=== PATIENT | female | born 1935 | race Caucasian/White ===

== ENCOUNTER 2022-01-21 07:00 | Inpatient (IN) | payer MEDICARE, OTHER ==
[~2022-01-21] VITALS: Ht 162.6 cm; Wt 67.7 kg
[2022-01-21 08:34] LABS: Basophils # (auto) 0 10 ^3/uL (0-0.2); Basophils % (auto) 0.5 % (0.0-2.0); Eosinophils # (auto) 0.1 10 ^3/uL (0-0.8); Eosinophils % (auto) 1.5 % (0.0-7.0); Hematocrit 44.6 % (36.0-46.0); Hemoglobin 14.8 g/dL (12.2-16.2); Lymphocytes # (auto) 2.3 10 ^3/uL (0.4-5.4); Lymphocytes % (auto) 31.5 % (10.0-50.0); Mean Corpuscular Hemoglobin 30.2 pg (28.0-32.0); Mean Corpuscular Hgb Conc. 33.1 g/dL (32.0-36.0); Mean Corpuscular Volume 91.3 fL (80.0-100.0); Monocytes # (auto) 0.7 10 ^3/uL (0-1.3); Monocytes % (auto) 9.2 % (0.0-12.0); Neutrophils # (auto) 4.1 10 ^3/uL (1.6-8.6); Neutrophils % (auto) 57.3 % (37.0-80.0); Nucleated Red Blood Cells % 0.4 %; Red Blood Cells 4.89 10^6/uL (4.0-5.20); Red Cell Distribution Width 14.8 % (11.8-14.3); White Blood Cell 7.2 10^3/uL (4.4-10.8)
[2022-01-21] MEDS ORDERED: SODIUM CHLORIDE 0.9% 1,000 ML IV ONE ×2 (08:45)
[2022-01-21] MEDS ORDERED: ONDANSETRON HCL 4 MG/2 ML VIAL IV ONE (08:45)
[2022-01-21 08:46] LABS: Albumin 4.2 g/dL (3.4-5.0); Calcium 10.3 mg/dL (8.5-10.1); Potassium 4.5 mmol/L (3.5-5.1)
[2022-01-21 08:57] LABS: BUN/Creatinine Ratio 26.7; Bilirubin, Total 0.9 mg/dL (0.2-1.0); Total Protein 6.3 g/dL (6.4-8.2)
[2022-01-21] MEDS ORDERED: CLOPIDOGREL BISULFATE 75 MG TAB PO ONE (09:00)
[2022-01-21] MEDS ORDERED: ASPirin 81 mg TAB PO ONE (09:00)
[2022-01-21 11:18] LABS: Urine Bacteria NONE SEEN /hpf (None Seen); Urine Blood Negative /uL (Negative); Urine Specific Gravity 1.012 (1.001-1.035); Urine WBC 2 /hpf (0 - 5)
[2022-01-21] MEDS ORDERED: MORPHINE SULFATE INJ 2 MG/ml SYRG IV PRN (12:00)
[2022-01-21] MEDS ORDERED: NITROGLYCERIN 0.4 MG SL TAB SL PRN (12:00)
[2022-01-21 13:22] LABS: Cholesterol 130 mg/dL (< 200); HDL Cholesterol 53 mg/dL (40-59); LDL Cholesterol 76 mg/dL (< 100); Triglycerides 77 mg/dL (< 150)
[2022-01-21 16:53] VITALS: BP 139/53
[2022-01-21 17:35] VITALS: BP 139/53
[2022-01-21] MEDS ORDERED: MOME1AER4 ×2 (17:48)
[2022-01-21] MEDS ORDERED: OMEP-260 PO (17:48)
[2022-01-21] MEDS ORDERED: LEVO50TA7 PO (17:48)
[2022-01-21] MEDS ORDERED: MONT-8 PO (17:48)
[2022-01-21] MEDS ORDERED: SIMV-8 PO (17:48)
[2022-01-21 20:00] VITALS: BP 128/66
[2022-01-21 22:44] VITALS: BP 128/66
[2022-01-22 05:14] VITALS: BP 126/65
[2022-01-22 06:32] LABS: Basophils # (auto) 0 10 ^3/uL (0-0.2); Basophils % (auto) 0.4 % (0.0-2.0); Eosinophils # (auto) 0.1 10 ^3/uL (0-0.8); Eosinophils % (auto) 2.2 % (0.0-7.0); Hematocrit 35.9 % (36.0-46.0); Hemoglobin 12.2 g/dL (12.2-16.2); Lymphocytes # (auto) 1.5 10 ^3/uL (0.4-5.4); Lymphocytes % (auto) 26.9 % (10.0-50.0); Mean Corpuscular Hemoglobin 31.2 pg (28.0-32.0); Mean Corpuscular Hgb Conc. 34.1 g/dL (32.0-36.0); Mean Corpuscular Volume 91.6 fL (80.0-100.0); Monocytes # (auto) 0.6 10 ^3/uL (0-1.3); Monocytes % (auto) 11.1 % (0.0-12.0); Neutrophils # (auto) 3.2 10 ^3/uL (1.6-8.6); Neutrophils % (auto) 59.4 % (37.0-80.0); Nucleated Red Blood Cells % 0.4 %; Red Blood Cells 3.91 10^6/uL (4.0-5.20); Red Cell Distribution Width 15.4 % (11.8-14.3); White Blood Cell 5.4 10^3/uL (4.4-10.8)
[2022-01-22 06:49] LABS: Albumin 3.3 g/dL (3.4-5.0); Calcium 9.5 mg/dL (8.5-10.1)
[2022-01-22 06:53] LABS: BUN/Creatinine Ratio 27.9; Bilirubin, Total 0.8 mg/dL (0.2-1.0); Total Protein 5.3 g/dL (6.4-8.2)
[2022-01-22 09:20] VITALS: BP 136/45
[2022-01-22] MEDS: ENOXAPARIN SOD 40 MG/0.4 ML SYRINGE SC SCH (10:10)
[2022-01-22 12:59] VITALS: BP 134/62
[2022-01-22] MEDS ORDERED: ACETAMINOPHEN 325 MG TAB PO PRN (13:15)
[2022-01-22 17:14] VITALS: BP 124/65
[2022-01-22 20:00] VITALS: BP 128/66
[2022-01-22 22:00] VITALS: BP 112/51
[2022-01-23 05:00] VITALS: BP 125/71
[2022-01-23] MEDS: LEVOTHYROXINE SODIUM 50 MCG TAB PO SCH (06:09)
[2022-01-23 09:07] VITALS: BP 140/52
[2022-01-23] MEDS: ENOXAPARIN SOD 40 MG/0.4 ML SYRINGE SC SCH (09:58)
[2022-01-23 12:31] VITALS: BP 145/68
[2022-01-23 16:27] VITALS: BP 106/61
[2022-01-23 23:16] LABS: Basophils # (auto) 0.1 10 ^3/uL (0-0.2); Basophils % (auto) 0.9 % (0.0-2.0); Eosinophils # (auto) 0.1 10 ^3/uL (0-0.8); Eosinophils % (auto) 1.6 % (0.0-7.0); Hematocrit 39.9 % (36.0-46.0); Hemoglobin 13.6 g/dL (12.2-16.2); Lymphocytes # (auto) 1.7 10 ^3/uL (0.4-5.4); Mean Corpuscular Hemoglobin 31.2 pg (28.0-32.0); Mean Corpuscular Hgb Conc. 34.1 g/dL (32.0-36.0); Mean Corpuscular Volume 91.5 fL (80.0-100.0); Monocytes # (auto) 0.7 10 ^3/uL (0-1.3); Monocytes % (auto) 11.9 % (0.0-12.0); Neutrophils # (auto) 3.4 10 ^3/uL (1.6-8.6); Neutrophils % (auto) 56.6 % (37.0-80.0); Nucleated Red Blood Cells % 0.1 %; Red Blood Cells 4.37 10^6/uL (4.0-5.20); Red Cell Distribution Width 14.7 % (11.8-14.3); White Blood Cell 5.9 10^3/uL (4.4-10.8)
[2022-01-24] MEDS: LEVOTHYROXINE SODIUM 50 MCG TAB PO SCH (05:41)
[2022-01-24 08:30] VITALS: BP 121/68
[2022-01-24 09:00] VITALS: BP 121/68
[2022-01-24] MEDS: ASPirin-EC 81 mg tab PO SCH (09:04)
[2022-01-24] MEDS: ENOXAPARIN SOD 40 MG/0.4 ML SYRINGE SC SCH (09:05)
[2022-01-24 09:34] LABS: Free T4 (Free Thyroxine) 1.07 ng/dL (0.89-1.76)
[2022-01-24 09:35] LABS: Free T3 2.53 pg/mL (2.3-4.2)
[2022-01-24 13:00] VITALS: BP 140/78
[2022-01-24 17:00] VITALS: BP 126/58
[2022-01-24] MEDS: ATORVASTATIN 20 MG TAB PO SCH (21:36)
[2022-01-25] VITALS (7 sets, daily range): BP systolic 93–151; BP diastolic 45–63
[2022-01-25 06:14] LABS: Partial Thromboplastin Time 27.1 sec (24.6-33.4)
[2022-01-25] MEDS: LEVOTHYROXINE SODIUM 50 MCG TAB PO SCH (06:19)
[2022-01-25] MEDS: ASPirin-EC 81 mg tab PO SCH (09:36)
[2022-01-25] MEDS: ENOXAPARIN SOD 40 MG/0.4 ML SYRINGE SC SCH (09:37)
[2022-01-25] MEDS ORDERED: LIDOCAINE VISCOUS 2% 15ML UD PO ONE (13:15)
[2022-01-25] MEDS ORDERED: MIDAZOLAM HCL 5 MG/ML-1ML VIAL IV ONE (13:15)
[2022-01-25] MEDS ORDERED: fentaNYL CITRATE 100 MCG/2 ML VL IV ONE (13:15)
[2022-01-25] MEDS ORDERED: MIDAZOLAM HCL 2MG/2ML 2ml VIAL (1mg/ml) IV ONE (14:00)
[2022-01-25] MEDS: APIXABAN 2.5 MG TAB PO SCH (18:49)
[2022-01-25] MEDS: ATORVASTATIN 20 MG TAB PO SCH (21:33)
[2022-01-26 05:00] VITALS: BP 146/62
[2022-01-26] MEDS: LEVOTHYROXINE SODIUM 50 MCG TAB PO SCH (06:15)
[2022-01-26 08:15] VITALS: BP 131/50
[2022-01-26] MEDS: APIXABAN 2.5 MG TAB PO SCH ×2 (08:34→17:16)
[2022-01-26 09:00] VITALS: BP 131/50
[2022-01-26] MEDS: ASPirin-EC 81 mg tab PO SCH (09:17)
[2022-01-26] MEDS: ENOXAPARIN SOD 40 MG/0.4 ML SYRINGE SC SCH (09:18)
[2022-01-26 13:00] VITALS: BP 121/60
[2022-01-26] MEDS ORDERED: APIX2.5T PO (15:31)
[2022-01-26 16:50] VITALS: BP 121/60
== END 2022-01-26 17:40 | disposition home or self-care (01) | DRG 65 ==
LOC: ER 07:00 → TELE 11:52 → TELE-WESTW 16:17
PROVIDERS: ADMIT Registered Nurse; ATTEND Internal Medicine
PROC: B24BZZ4 Ultrasonography of Heart with Aorta, Transesophageal (ICD-10-PCS; principal; 2022-01-25)
DX: I63.9 Cerebral infarction, unspecified (principal); G81.94 Hemiplegia, unspecified affecting left nondominant side; I12.9 Hypertensive chronic kidney disease with stage 1 through stage 4 chronic kidney disease, or unspecified chronic kidney disease; N18.2 Chronic kidney disease, stage 2 (mild); K52.9 Noninfective gastroenteritis and colitis, unspecified; R29.700 NIHSS score 0; J45.909 Unspecified asthma, uncomplicated; E03.9 Hypothyroidism, unspecified; Z20.822 Contact with and (suspected) exposure to COVID-19; E78.5 Hyperlipidemia, unspecified; Z85.42 Personal history of malignant neoplasm of other parts of uterus; Z90.710 Acquired absence of both cervix and uterus; Z88.0 Allergy status to penicillin
CPT/HCPCS: 36415; 70450; 70551; 71045; 80053; 80061; 81001; 83036; 83880; 84439; 84443; 84481; 84484; 85025; 85610; 85730; 86850; 86860; 86870; 86880; 86900; 86901; 86905; 86906; 86970; 86971; 86978; 93005; 93306; 93312; 93886; 96361; 96374; 97110; 97116; 97163; 97530; 99152; G0378; J2250; J2405

== ENCOUNTER 2022-06-25 08:23 | Inpatient (IN) | payer OTHER ==
[~2022-06-25] VITALS: Ht 160 cm; Wt 64.2 kg
[~2022-06-25 08:23] MED LIST: APIX2.5T PO; LEVO50TA7 PO; MOME1AER4; MONT-8 PO; OMEP-260 PO; SIMV-8 PO
[2022-06-25] MEDS ORDERED: SODIUM CHLORIDE 0.9% 500 ML IV ONE (10:00)
[2022-06-25] MEDS ORDERED: cefTRIAXone 1GM/50ML D5W 50 ML IV ONE (10:00)
[2022-06-25] MEDS ORDERED: levoFLOXacin 500MG 100 ML IV ONE (10:00)
[2022-06-25] MEDS ORDERED: IPRATROPIUM BROM 0.5 MG/2.5ML INH SOL NEB ONE (10:00)
[2022-06-25] MEDS ORDERED: ALBUTEROL SULF 2.5 MG/0.5ML(0.5%) NEB SOLN NEB ONE (10:00)
[2022-06-25] MEDS ORDERED: AZITHROMYCIN 500MG/ 250ML 250 ML IV ONE (10:00)
[2022-06-25 11:26] LABS: Basophils # (auto) 0.1 10 ^3/uL (0-0.2); Eosinophils # (auto) 0.1 10 ^3/uL (0-0.8); Eosinophils % (auto) 0.8 % (0.0-7.0); Hematocrit 37.9 % (36.0-46.0); Hemoglobin 13.4 g/dL (12.2-16.2); Lymphocytes # (auto) 1.1 10 ^3/uL (0.4-5.4); Lymphocytes % (auto) 12.3 % (10.0-50.0); Mean Corpuscular Hemoglobin 31.5 pg (28.0-32.0); Mean Corpuscular Hgb Conc. 35.2 g/dL (32.0-36.0); Mean Corpuscular Volume 89.4 fL (80.0-100.0); Monocytes # (auto) 1.1 10 ^3/uL (0-1.3); Monocytes % (auto) 12.2 % (0.0-12.0); Neutrophils # (auto) 6.7 10 ^3/uL (1.6-8.6); Neutrophils % (auto) 73.7 % (37.0-80.0); Nucleated Red Blood Cells % 0.1 %; Red Blood Cells 4.24 10^6/uL (4.0-5.20); Red Cell Distribution Width 13.4 % (11.8-14.3); White Blood Cell 9.1 10^3/uL (4.4-10.8)
[2022-06-25 11:41] LABS: Potassium 3.6 mmol/L (3.5-5.1)
[2022-06-25 11:42] LABS: BUN/Creatinine Ratio 14.8; Bilirubin, Total 0.9 mg/dL (0.2-1.0); Calcium 10.1 mg/dL (8.5-10.1); Total Protein 5.6 g/dL (6.4-8.2)
[2022-06-25 12:38] LABS: Urine Bacteria FEW /hpf (None Seen); Urine Blood TRACE /uL (Negative); Urine Specific Gravity 1.008 (1.001-1.035); Urine WBC 11 /hpf (0 - 5)
[2022-06-25] MEDS ORDERED: guaiFENesin-DM 100/10mg/5ml SYR PO PRN (13:15)
[2022-06-25] MEDS ORDERED: MORPHINE SULFATE INJ 2 MG/ml SYRG IV PRN (13:15)
[2022-06-25] MEDS ORDERED: NITROGLYCERIN 0.4 MG SL TAB SL PRN (13:15)
[2022-06-25 13:20] VITALS: BP 113/42
[2022-06-25 13:58] LABS: Cholesterol 130 mg/dL (< 200); HDL Cholesterol 32 mg/dL (40-59); LDL Cholesterol 81 mg/dL (< 100); Triglycerides 129 mg/dL (< 150)
[2022-06-25] MEDS ORDERED: FUROSEMIDE 40 MG/4 ML VIAL IV ONE (14:00)
[2022-06-25] MEDS ORDERED: ALBUTEROL MEDNEB 2.5 mg/3ml NEB ONE (17:54)
[2022-06-25] MEDS: ALBUTEROL SULF 2.5 MG/0.5ML(0.5%) NEB SOLN NEB SCH (18:07)
[2022-06-25] MEDS: APIXABAN 2.5 MG TAB PO SCH (18:10)
[2022-06-26 05:00] LABS: Basophils # (auto) 0 10 ^3/uL (0-0.2); Basophils % (auto) 0.5 % (0.0-2.0); Eosinophils # (auto) 0.1 10 ^3/uL (0-0.8); Eosinophils % (auto) 1.7 % (0.0-7.0); Hematocrit 30.6 % (36.0-46.0); Lymphocytes # (auto) 0.8 10 ^3/uL (0.4-5.4); Lymphocytes % (auto) 16.7 % (10.0-50.0); Mean Corpuscular Hemoglobin 31.8 pg (28.0-32.0); Mean Corpuscular Hgb Conc. 35.8 g/dL (32.0-36.0); Mean Corpuscular Volume 88.6 fL (80.0-100.0); Monocytes # (auto) 0.7 10 ^3/uL (0-1.3); Monocytes % (auto) 13.8 % (0.0-12.0); Neutrophils # (auto) 3.4 10 ^3/uL (1.6-8.6); Neutrophils % (auto) 67.3 % (37.0-80.0); Red Blood Cells 3.45 10^6/uL (4.0-5.20); Red Cell Distribution Width 13.3 % (11.8-14.3)
[2022-06-26 05:14] LABS: Anion Gap 7 (5-15); BUN/Creatinine Ratio 21.5; Blood Urea Nitrogen 14 mg/dL (7-18); Calcium 8.6 mg/dL (8.5-10.1); Carbon Dioxide 27 mmol/L (21-32); Chloride 109 mmol/L (98-107); GFR African American 111 mL/min; GFR Non-African American 92 mL/min; Glucose 84 mg/dL (74-106); Potassium 3.4 mmol/L (3.5-5.1); Sodium 143 mmol/L (136-145)
[2022-06-26] MEDS ORDERED: ALBUTEROL MEDNEB 2.5 mg/3ml NEB ONE ×3 (06:48→18:13)
[2022-06-26] MEDS ORDERED: LEVOTHYROXINE SODIUM 50 MCG TAB PO SCH (07:00)
[2022-06-26] MEDS: ALBUTEROL SULF 2.5 MG/0.5ML(0.5%) NEB SOLN NEB SCH ×3 (08:44→18:22)
[2022-06-26] MEDS: APIXABAN 2.5 MG TAB PO SCH ×2 (09:01→18:53)
[2022-06-26] MEDS: IPRATROPIUM BROM 0.5 MG/2.5ML INH SOL NEB PRN ×2 (09:42→18:22)
[2022-06-26] MEDS ORDERED: AZITHROMYCIN 500MG/ 250ML 250 ML IV SCH (10:00)
[2022-06-26] MEDS ORDERED: levoFLOXacin 250MG 50 ML IV SCH (10:00)
[2022-06-26] MEDS ORDERED: MONTELUKAST SODIUM 10 MG TAB PO SCH (10:00)
[2022-06-26] MEDS ORDERED: ENOXAPARIN SOD 40 MG/0.4 ML SYRINGE SC SCH (10:00)
[2022-06-26] MEDS ORDERED: PANTOPRAZOLE 40 MG TAB PO SCH (10:00)
[2022-06-26] MEDS ORDERED: LEVO750T8 PO (16:59)
[2022-06-26] MEDS ORDERED: levoFLOXacin 500 MG TAB PO ONE (17:00)
[2022-06-26] MEDS ORDERED: POTASSIUM CHL 20 Meq TABLET PO ONE ×2 (17:00→17:47)
[2022-06-26 18:00] VITALS: BP 126/70
[2022-06-26] MEDS ORDERED: ALBUAER3 IN (20:53)
[2022-06-27] MEDS ORDERED: levoFLOXacin 500 MG TAB PO SCH (10:00)
== END 2022-06-26 21:52 | disposition home or self-care (01) | DRG 194 ==
LOC: ER 08:23 → OVERFLOW 13:03
PROVIDERS: ADMIT Nurse Practitioner Family; ATTEND Nurse Practitioner Family
DX: J15.9 Unspecified bacterial pneumonia (principal); N39.0 Urinary tract infection, site not specified; E78.5 Hyperlipidemia, unspecified; E03.9 Hypothyroidism, unspecified; R09.02 Hypoxemia; R00.1 Bradycardia, unspecified; Z20.822 Contact with and (suspected) exposure to COVID-19; E11.9 Type 2 diabetes mellitus without complications; E87.6 Hypokalemia; J45.909 Unspecified asthma, uncomplicated; Z90.710 Acquired absence of both cervix and uterus; Z88.0 Allergy status to penicillin; Z86.73 Personal history of transient ischemic attack (TIA), and cerebral infarction without residual deficits
CPT/HCPCS: 36415; 71046; 80048; 80053; 80061; 81001; 83605; 83880; 84443; 84484; 85025; 87040; 87426; 87804; 93005; 94640; 96361; 96365; G0378; J0696; J1956

== ENCOUNTER 2025-02-04 15:48 | Emergency (ER) | payer OTHER ==
[~2025-02-04] VITALS: Ht 152.4 cm; Wt 51.8 kg
[~2025-02-04 15:48] MED LIST changes: +LEVO750T8 PO; -MOME1AER4; +MOME1AER5; -OMEP-260 PO; +OMEP1CAP70 PO; -SIMV-8 PO; +SIMV20TA20 PO
--- NOTE | 2025-02-04 16:09 | ED.PDOC ---
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 According to the granddaughter the patient was complaining of a bdominal discomfort for last couple of days but since morning she vomited 4 times with which contains phlegm and undigested food material. Patient also complaint of right lower leg swelling and dark urine for last 1 week. She denies fever, chills, abdominal pain, positive sick contact, dysuria, hematuria or any change in bowel habit. Chief Complaint: Nausea/Vomiting Time Seen by MD: 15:50 Primary Care Provider: Monico Allergies: Coded Allergies: Penicillins (Verified Allergy, Unknown, 08/29/16) Home Meds Active Scripts Levofloxacin (Levaquin 750 mg) 750 Mg Tab, 750 MG PO DAILY, #7 MG Prov:ALICIA BORJAS MD 06/26/22 Apixaban Base (ELIQUIS) 2.5 Mg Tab, 2.5 MG PO BIDWM, #60 TAB Prov:CONNIE SHINE MD 01/26/22 Reported Medications Mometasone Furoate-Formoterol (Dulera 50-5 Mcg/Act) 1 Aer Aer 01/21/22 Omeprazole (Omeprazole Dr) 20 Mg Cap, 1 CAP PO DAILYPRN 01/21/22 Montelukast Sodium (MONTELUKAST SODIUM) 10 Mg Tab, 1 TAB PO DAILYPRN 01/21/22 Simvastatin (Simvastatin) 20 Mg Tab, 1 TAB PO 01/21/22 Levothyroxine Sodium (Levothyroxine Sodium) 50 Mcg Tab, 1 TAB PO DAILYPRN 01/21/22 Information Source: Patient, Legal Guardian Mode of Arrival: Ambulatory Severity: Moderate Timing: Days Duration: Since onset Prehospital treatment: None Past Medical History PAST MEDICAL HISTORY: Asthma, GERD, High Lipids, Thyroid Surgical History: Appendectomy, Hysterectomy MONKEY BREEDER History: No Pertinent MONKEY BREEDER History Family History Family History: Reviewed,noncontributory to illness Social History Smoker: Non-Smoker Alcohol: Denies ETOH Use Drugs: Denies Drug Use Lives In: Home Constitutional: denies: chills, diaphoresis, fatigue, fever, malaise, sweats, weakness, others EENTM: denies: blurred vision, double vision, ear bleeding, ear discharge, ear drainage, ear pain, ear ringing, eye pain, eye redness, hearing loss, mouth pain, mouth swelling, nasal discharge, nose bleeding, nose congestion, nose pain, photophobia, tearing, throat pain, throat swelling, voice changes, others Respiratory: denies: cough, hemoptysis, orthopnea, SOB at rest, shortness of breath, SOB with excertion, stridor, wheezing, others Cardiovascular: denies: chest pain, dizzy spells, diaphoresis, Dyspnea on exertion, edema, irregular heart beat, left arm pain, lightheadedness, palpitations, PND, syncope, others Gastrointestinal: reports: abdominal pain, nausea, vomiting; denies: abdomen distended, blood streaked bowels, constipated, diarrhea, dysphagia, difficulty swallowing, hematemesis, melena, poor appetite, poor fluid intake, rectal bleeding, rectal pain, others Genitourinary: denies: abnormal vagina bleeding, burning, dyspareunia, dysuria, flank pain, frequency, hematuria, incontinence, pain, , vagina discharge, urgency, others Neurological: denies: dizziness, fainting, headache, left sided numbness, left sided weakness, numbness, paresthesia, pre-existing deficit, right sided numbness, right sided weakness, seizure, speech problems, tingling, tremors, weakness, others Musculoskeletal: reports: others (Swelling of the right lower leg); denies: back pain, gout, joint pain, joint swelling, muscle pain, muscle stiffness, neck pain Integumetry: denies: bruises, change in color, change in hair/nails, dryness, laceration, lesions, lumps, rash, wounds, others Allergic/Immunocompromised: denies: Difficulty Healing, Frequent Infections, Hives, Itching, others Hematologic/Lymphatic: denies: anemia, blood clots, easy bleeding, easy b ruising, swollen glands, others Endocrine: denies: excessive hunger, excessive sweating, excessive thirst, excessive urination, flushing, intolerance to cold, intolerance to heat, unexplained weight gain, unexplained weight loss, others Psychiatric: denies: anxiety, bipolar disorder, depression, hopeless, panic disorder, schizophrenia, sleepless, suicidal, others Physical Exam General Appearance: Normal HEENT: Normal ENT Inspection, Pharynx Normal, TMs Normal Neck: Full Range of Motion, Non-Tender, Normal, Normal Inspection Respiratory: Chest Non-Tender, Lungs Clear, No Accessory Muscle Use, No Respiratory Distress, Normal Breath Sounds Cardiovascular: No Edema, No JVD, No Murmur, No Gallop, Normal Peripheral Pulses, Regular Rate/Rhythm Breast Exam: Deferred Gastrointestinal: No Organomegaly, Non Tender, No Pulsatile Mass, Normal Bowel Sounds Genitalia: Deferred Pelvic: Deferred Rectal: Deferred Extremities: Calf tenderness, Normal capillary refill, Swelling, Other (Pedal edema 1+ in the right side) Neurologic: Other (Use walker) Cerebellar Function: NOT DONE Reflexes: NOT DONE Skin: NOT DONE Peripheral Pulses: 2+ carotid (R), 2+ carotid (L), 2+ femoral (R), 2+ femoral (L), 2+ dorsalis pedis (R), 2+ dorsalis pedis (L), 2+ Radial (R), 2+ Radial (L), 2+ Brachial (R), 2+ Brachial (L) Lymphatic: NOT DONE Was a procedure done? Was a procedure done?: No Differential Dx Considerations may include: Gastroenteritis, gastritis, PUD, cholelithiasis, IL, DVT, cellulitis, UTI X-Ray, Labs, Meds, VS Vital Signs Date Time Temp Pulse Resp B/P (MAP) Pulse Ox O2 Delivery O2 Flow Rate FiO2 02/04/25 15:50 97.3 77 18 109/66 97 97.3 Lab Test 02/04/25 18:24 02/04/25 17:07 Range/Units Urine Color Yellow Yellow Urine Clarity Turbid H Clear Urine pH 6.0 5.0-9.0 Urine Specific [place] 1.015 1.001-1.035 Urine Protein Negative Negative Urine Ketones Negative Negative Urine Blood Negative Negative /uL Urine Nitrite Negative Negative Urine Bilirubin Negative Negative Urine Urobilinogen Normal Negative mg/dL Urine Leukocyte Esterase Trace Negative /uL Urine RBC 42 0 - 4 /hpf Urine Microscopic WBC 20 H 0-5 /HPF Urine Squamous Epithelial Cells Few <5 /hpf Urine Calcium Oxalate Crystals Few None Seen Urine Bacteria None seen None Seen /hpf Urine Mucus Few None Seen Urine Glucose Normal Normal mg/dL White Blood Count 6.1 4.4-10.8 10^3/uL Red Blood Count 4.27 4.0-5.20 10^6/uL Hemoglobin 12.0 L 12.2-16.2 g/dL Hematocrit 36.4 36.0-46.0 % Mean Corpuscular Volume 85.2 80.0-100.0 fL Mean Corpuscular Hemoglobin 28.2 28.0-32.0 pg Mean Corpuscular Hemoglobin Concent 33.0 32.0-36.0 g/dL Red Cell Distribution Width 18.4 H 11.8-14.3 % Platelet Count 194 140-450 10^3/uL Mean Platelet Volume 7.3 6.9-10.8 fL Neutrophils (%) (Auto) 72.9 37.0-80.0 % Lymphocytes (%) (Auto) 15.6 10.0-50.0 % Monocytes (%) (Auto) 10.3 0.0-12.0 % Eosinophils (%) (Auto) 0.7 0.0-7.0 % Basophils (%) (Auto) 0.5 0.0-2.0 % Neutrophils # (Auto) 4.5 1.6-8.6 10 ^3/uL Lymphocytes # (Auto) 1.0 0.4-5.4 10 ^3/uL Monocytes # (Auto) 0.6 0-1.3 10 ^3/uL Eosinophils # (Auto) 0 0-0.8 10 ^3/uL Basophils # (Auto) 0 0-0.2 10 ^3/uL Nucleated Red Blood Cells 0.0 % Sodium Level 143 136-145 mmol/L Potassium Level 3.7 3.5-5.1 mmol/L Chloride Level 107 98-107 mmol/L Carbon Dioxide Level 28 20-31 mmol/L Anion Gap 8 5-15 Blood Urea Nitrogen 13 9-23 mg/dL Creatinine 0.89 0.550-1.02 mg/dL Glomerular Filtration Rate Calc 62 >90 mL/min BUN/Creatinine Ratio 14.6 10.0-20.0 Serum Glucose 83 74-106 mg/dL Calcium Level 9.2 8.7-10.4 mg/dL Total Bilirubin 0.8 0.2-1.0 mg/dL Aspartate Amino Transferase (AST) 21 13-40 U/L Alanine Aminotransferase (ALT) 11 7-40 U/L Alkaline Phosphatase 84 46-116 U/L Troponin I High Sensitivity 4 </=34 ng/L Total Protein 4.9 L 5.7-8.2 g/dL Albumin 3.3 3.2-4.8 g/dL Lipase 25 12-53 U/L X-Ray, Labs, Meds, VS Comment CLINICAL HISTORY: Right upper quadrant pain TECHNIQUE: Transabdominal sonogram was performed of the right upper quadrant. COMPARISON: None FINDINGS: The liver is normal in echogenicity. There is no focal parenchymal abnormality. No intrahepatic biliary ductal dilatation is present. The liver measures 16.6 cm. The gallbladder contains stones with no wall thickening. The sonographic gallardo sign was reported to be absent. The common bile duct is normal in caliber, measuring 2 mm. The partially visualized pancreas is grossly unremarkable. The right kidney is normal in echogenicity and measures 10.3 cm in length. There is no evidence for hydronephrosis or calculi. IMPRESSION: Cholelithiasis. CLINICAL HISTORY: To rule out DVT TECHNIQUE: Color and duplex doppler imagine of the bilateral lower extremity veins was performed. Vessel compression and augmentation if possible was also performed. COMPARISON: None FINDINGS: Right lower Extremity: Right common femoral vein: Normal compressibility and flow. Right superficial femoral vein: Normal compressibility and flow. Right popliteal vein: Normal compressibility and flow. Proximal calf veins demonstrate flow. Left lower Extremity: Left common femoral vein: Normal compressibility and flow. Left superficial femoral vein: Normal compressibility and flow. Left popliteal vein: Normal compressibility and flow. Proximal calf veins demonstrate flow. IMPRESSION: NO SONOGRAPHIC EVIDENCE FOR DEEP VENOUS THROMBOSIS IN THE BILATERAL LOWER EXTREMITY VEINS. Images Reviewed?: Images reviewed and evaluated by me Time of 1ST Reevaluation: 17:38 Reevaluation 1ST: Unchanged Patient Education/Counseling: Diagnosis, Treatment Family Education/Counseling: Diagnosis, Treatment Comments This is a 89 years old female presented to the ED with a chief complaint of abdominal discomfort, nausea and vomiting since morning. Initial physical exam demonstrated swelling of the right leg, and bilateral pedal edema 1+ Doppler scan of the lower extremity excluded DVT CBC and BMP are unremarkable Ultrasound of the right upper quadrant demonstrated cholelithiasis without acute cholecystitis U/A showed possible UTI The patient was sent to home with nitrofurantoin 100 b.i.d. for 5 days and advised to follow up with PCP. SEPSIS Sepsis Screen Date sepsis recognized/suspect: Feb 04, 2025 Time Sepsis recognized/suspect: 1551 Recent Procedure: No On Antibiotic Therapy: No Respiratory Rate >20: No Heart Rate >90: No Temp<36 C (96.8 F) or >38.3 C: No SBP <90 or MAP <65 mmHG: No New Acute Mental Status Change: No Is the patient on CPAP, BIPAP,: No Physician Orders Bilat Lower Dvt (02/04/25 16:06) Abdomen Limited (02/04/25 16:06) Vital Signs Date Time Temp Pulse Resp B/P (MAP) Pulse Ox O2 Delivery O2 Flow Rate FiO2 02/04/25 15:50 97.3 77 18 109/66 97 97.3 Laboratory Tests Test 02/04/25 17:07 White Blood Count 6.1 10^3/uL (4.4-10.8) Departure 1 Departure Time of Disposition: 19:06 Impression: Primary Impression: UTI (urinary tract infection) Additional Impression: Cholelithiasis Disposition: HOME / SELF CARE / HOMELESS Condition: Fair e-Prescriptions Nitrofurantoin (Nitrofurantoin) 100 Mg Cap 100 MG PO BID for 5 Days, #10 CAP Prov: LUCRECIA ANAND RESIDENT 02/04/25 Critical Care Note Critical Care Time?: No Stability Stability form required: LUCRECIA Hill RESIDENT Feb 04, 2025 16:09
--- NOTE | 2025-02-04 17:27 | DVH ---
CLINICAL HISTORY: To rule out DVT TECHNIQUE: Color and duplex doppler imagine of the bilateral lower extremity veins was performed. Ves ivana compression and augmentation if possible was also performed. COMPARISON: None FINDINGS: Right lower Extremity: Right common femoral vein: Normal compressibility and flow. Right superficial femoral vein: Normal compressibility and flow. Right popliteal vein: Normal compressibility and flow. Proximal calf veins demonstrate flow. Left lower Extremity: Left common femoral vein: Normal compressibility and flow. Left superficial femoral vein: Normal compressibility and flow. Left popliteal vein: Normal compressibility and flow. Proximal calf veins demonstrate flow. IMPRESSION: NO SONOGRAPHIC EVIDENCE FOR DEEP VENOUS THROMBOSIS IN THE BILATERAL LOWER EXTREMITY VEINS.
--- NOTE | 2025-02-04 17:30 | DVH ---
CLINICAL HISTORY: Right upper quadrant pain TECHNIQUE: Transabdominal sonogram was performed of the right upper quadrant. COMPARISON: None FINDINGS: The liver is normal in echogenicity. There is no focal parenchymal abnormality. No intrahepatic bili josue ductal dilatation is present. The liver measures 16.6 cm. The gallbladder contains stones with no wall thickening. The sonographic gallardo sign was reported to be absent. The common bile duct is normal in caliber, measuring 2 mm. The partially visualized pancreas is grossly unremarkable. The right kidney is normal in echogenicity and measures 10.3 cm in length. There is no evidence for h ydronephrosis or calculi. IMPRESSION: Cholelithiasis.
[2025-02-04 17:34] LABS: Hematocrit 36.4 % (36.0-46.0); Hemoglobin 12.0 g/dL (12.2-16.2); Mean Corpuscular Hemoglobin 28.2 pg (28.0-32.0); Mean Corpuscular Volume 85.2 fL (80.0-100.0); Nucleated Red Blood Cells % 0.0 %
[2025-02-04 17:41] LABS: Alanine Aminotransferase 11 U/L (7-40); Albumin 3.3 g/dL (3.2-4.8); Alkaline Phosphatase 84 U/L (46-116); Anion Gap 8 (5-15); BUN/Creatinine Ratio 14.6 (10.0-20.0); Blood Urea Nitrogen 13 mg/dL (9-23); Calcium 9.2 mg/dL (8.7-10.4); Carbon Dioxide 28 mmol/L (20-31); Glucose 83 mg/dL (74-106); Lipase 25 U/L (12-53); Potassium 3.7 mmol/L (3.5-5.1); Sodium 143 mmol/L (136-145)
[2025-02-04 17:42] LABS: Bilirubin, Total 0.8 mg/dL (0.2-1.0)
[2025-02-04 17:45] LABS: Chloride 107 mmol/L (98-107); Total Protein 4.9 g/dL (5.7-8.2)
[2025-02-04 18:50] LABS: Urine Protein, UAD Negative (Negative)
[2025-02-04] MEDS ORDERED: NITR-52 PO ×2 (19:08→19:48)
[2025-02-04 19:34] VITALS: BP 104/59; PULSE 59; RESP 20; TEMP 97.9; O2SAT 100
--- NOTE | 2025-02-06 14:07 | ECG ---
[facility] Test Date: 2025-02-04 Test Time: 16:27:43 Pat Name: JAYLIN RASHID Department: [facility] ED Patient ID: [facility]-[id number] Room: Gender: F Cloth Hand: YO : 1935 Requested By: LUCRECIA ANAND Order Number: [id number] Reading MD: Bobby Villagomez Measurements Intervals [place] Rate: 64 P: 50 MS: 168 QRS: 4 QRSD: 92 T: 62 QT: 427 QTc: 441 Interpretive Statements Sinus rhythm Low voltage, precordial leads Baseline wander in lead(s) I,II,aVR Electronically Signed On 02-11-2025 14:18:31 PDT by Bobby Villagomez Please click the below link to view image of tracing.
== END 2025-02-04 19:39 | disposition home or self-care (01) ==
LOC: ER 15:48
DX: N39.0 Urinary tract infection, site not specified (principal); K80.20 Calculus of gallbladder without cholecystitis without obstruction; R60.0 Localized edema; K21.9 Gastro-esophageal reflux disease without esophagitis; F41.9 Anxiety disorder, unspecified; E78.5 Hyperlipidemia, unspecified; Z79.899 Other long term (current) drug therapy; Z90.710 Acquired absence of both cervix and uterus; Z90.49 Acquired absence of other specified parts of digestive tract; Z88.0 Allergy status to penicillin; Z86.73 Personal history of transient ischemic attack (TIA), and cerebral infarction without residual deficits; Z79.51 Long term (current) use of inhaled steroids; Z79.01 Long term (current) use of anticoagulants
CPT/HCPCS: 36415; 76705; 80053; 81001; 83690; 84484; 85025; 93005; 93970

== ENCOUNTER 2025-05-25 14:02 | Inpatient (IN) | payer OTHER, MEDICAID ==
[~2025-05-25] VITALS: Ht 160 cm; Wt 51.0 kg
[~2025-05-25 14:02] MED LIST changes: +NITR-52 PO
[2025-05-25 15:58] VITALS: PULSE 74; RESP 18; O2SAT 97
--- NOTE | 2025-05-25 16:01 | ED.PDOC ---
Karen. trauma (HPI) HPI Comments This is a 89 year female BIB daughter presenting to the ED with chief complaint of fall injury. Patient's daughter reports that the patient had fallen suddenly at home without tripping on anything, falling onto her face into their carpet floor. Patient relays that she now has facial pain and bruising. Daughter states patient has history of a brain bleed in the past, no longer being on blood thinners. Patient denies any LOC, dizziness, N/V, headache, or chest pain. Chief Complaint: Fall Injury Time Seen by MD: 16:00 Primary Care Provider: Monico Reviewed notes: Nurses Notes, Medications, Allergies Allergies: Coded Allergies: Penicillins (Verified Allergy, Unknown, 08/29/16) Home Meds Active Scripts Nitrofurantoin (Nitrofurantoin) 100 Mg Cap, 1 CAP PO BID for 10 Days, #20 CAP Prov:SYEDA MCDONNELL MD 02/04/25 Nitrofurantoin (Nitrofurantoin) 100 Mg Cap, 100 MG PO BID for 5 Days, #10 CAP Prov:LUCRECIA ANAND 02/04/25 Levofloxacin (Levaquin 750 mg) 750 Mg Tab, 750 MG PO DAILY, #7 MG Prov:ALICIA BORJAS MD 06/26/22 Apixaban Base (ELIQUIS) 2.5 Mg Tab, 2.5 MG PO BIDWM, #60 TAB Prov:CONNIE SHINE MD 01/26/22 Reported Medications Mometasone Furoate-Formoterol (Dulera 50-5 Mcg/Act) 1 Aer Aer 01/21/22 Omeprazole (Omeprazole Dr) 20 Mg Cap, 1 CAP PO DAILYPRN 01/21/22 Montelukast Sodium (MONTELUKAST SODIUM) 10 Mg Tab, 1 TAB PO DAILYPRN 01/21/22 Simvastatin (Simvastatin) 20 Mg Tab, 1 TAB PO 01/21/22 Levothyroxine Sodium (Levothyroxine Sodium) 50 Mcg Tab, 1 TAB PO DAILYPRN 01/21/22 Information Source: Patient, Relative (Child) Mode of Arrival: Wheelchair Severity: Moderate Timing: Hours Duration: Since onset Prehospital treatment: None Location: Face Mechanism: Fall Past Medical History PAST MEDICAL HISTORY: Asthma, GERD, High Lipids, Thyroid Surgical History: Appendectomy, Hysterectomy 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 History Family History Family History: Reviewed,noncontributory to illness Social History Smoker: Non-Smoker Alcohol: Denies ETOH Use Drugs: Denies Drug Use Lives In: Home Constitutional: denies: chills, diaphoresis, fatigue, fever, malaise, sweats, weakness, others EENTM: denies: blurred vision, double vision, ear bleeding, ear discharge, ear drainage, ear pain, ear ringing, eye pain, eye redness, hearing loss, mouth pain, mouth swelling, nasal discharge, nose bleeding, nose congestion, nose pain, photophobia, tearing, throat pain, throat swelling, voice changes, others Respiratory: denies: cough, hemoptysis, orthopnea, SOB at rest, shortness of breath, SOB with excertion, stridor, wheezing, others Cardiovascular: denies: chest pain, dizzy spells, diaphoresis, Dyspnea on exertion, edema, irregular heart beat, left arm pain, lightheadedness, palpitations, PND, syncope, others Gastrointestinal: denies: abdomen distended, abdominal pain, blood streaked bowels, constipated, diarrhea, dysphagia, difficulty swallowing, hematemesis, melena, nausea, poor appetite, poor fluid intake, rectal bleeding, rectal pain, vomiting, others Genitourinary: denies: abnormal vagina bleeding, burning, dyspareunia, dysuria, flank pain, frequency, hematuria, incontinence, pain, , vagina discharge, urgency, others Neurological: denies: dizziness, fainting, headache, left sided numbness, left sided weakness, numbness, paresthesia, pre-existing deficit, right sided numbness, right sided weakness, seizure, speech problems, tingling, tremors, weakness, others Musculoskeletal: reports: others (Facial pain); denies: back pain, gout, joint pain, joint swelling, muscle pain, muscle stiffness, neck pain Integumetry: reports: bruises; denies: change in color, change in hair/nails, dryness, laceration, lesions, lumps, rash, wounds, others Allergic/Immunocompromised: denies: Difficulty Healing, Frequent Infections, Hives, Itching, others Hematologic/Lymphatic: denies: anemia, blood clots, easy bleeding, easy bruising, swollen glands, others Endocrine: denies: excessive hunger, excessive sweating, excessive thirst, excessive urination, flushing, intolerance to cold, intolerance to heat, unexpla ined weight gain, unexplained weight loss, others Psychiatric: denies: anxiety, bipolar disorder, depression, hopeless, panic disorder, schizophrenia, sleepless, suicidal, others All Other Systems: Reviewed and Negative Physical Exam General Appearance: No Apparent Distress, Normal HEENT: Normal ENT Inspection, Pharynx Normal, TMs Normal Neck: Full Range of Motion, Non-Tender, Normal, Normal Inspection Respiratory: Chest Non-Tender, Lungs Clear, No Accessory Muscle Use, No Respiratory Distress, Normal Breath Sounds Cardiovascular: No Edema, No JVD, No Murmur, No Gallop, Normal Peripheral Pulses, Regular Rate/Rhythm Breast Exam: Deferred Gastrointestinal: No Organomegaly, Non Tender, No Pulsatile Mass, Normal Bowel Sounds, Soft Genitalia: Deferred Pelvic: Deferred Rectal: Deferred Extremities: No calf tenderness, Normal capillary refill, Normal inspection, Normal range of motion, Non-tender, No pedal edema Musculoskeletal : Apperance: Normal Neurologic: Alert, cna II-XII nml as Tested, No Motor Deficits, Normal Affect, Normal Mood, No Sensory Deficits Cerebellar Function: Normal Reflexes: Normal Skin: Bruises (Ecchymosis to the face noted), Dry, Normal Color, Warm Lymphatic: No Adenopathy Was a procedure done? Was a procedure done?: No Differential Diagnosis Multiple Trauma: Fractures, Contusion X-Ray, Labs, Meds, VS Vital Signs Date Time Temp Pulse Resp B/P (MAP) Pulse Ox O2 Delivery O2 Flow Rate FiO2 05/25/25 15:58 74 18 97 Room Air* 0 21 05/25/25 15:38 98.8 74 18 130/87 (101) 97 98.8 05/25/25 14:08 97.9 81 16 99/56 94 97.9 Lab Test 05/25/25 16:40 Range/Units White Blood Count 8.8 4.4-10.8 10^3/uL Red Blood Count 3.87 L 4.0-5.20 10^6/uL Hemoglobin 11.5 L 12.2-16.2 g/dL Hematocrit 35.1 L 36.0-46.0 % Mean Corpuscular Volume 90.6 80.0-100.0 fL Mean Corpuscular Hemoglobin 29.6 28.0-32.0 pg Mean Corpuscular Hemoglobin Concent 32.7 32.0-36.0 g/dL Red Cell Distribution Width 15.3 H 11.8-14.3 % Platelet Count 207 140-450 10^3/uL Mean Platelet Volume 7.2 6.9-10.8 fL Neutrophils (%) (Auto) 75.7 37.0-80.0 % Lymphocytes (%) (Auto) 14.3 10.0-50.0 % Monocytes (%) (Auto) 9.2 0.0-12.0 % Eosinophils (%) (Auto) 0.5 0.0-7.0 % Basophils (%) (Auto) 0.3 0.0-2.0 % Neutrophils # (Auto) 6.6 1.6-8.6 10 ^3/uL Lymphocytes # (Auto) 1.3 0.4-5.4 10 ^3/uL Monocytes # (Auto) 0.8 0-1.3 10 ^3/uL Eosinophils # (Auto) 0 0-0.8 10 ^3/uL Basophils # (Auto) 0 0-0.2 10 ^3/uL Nucleated Red Blood Cells 0.1 % Sodium Level 140 136-145 mmol/L Potassium Level 3.8 3.5-5.1 mmol/L Chloride Level 103 98-107 mmol/L Carbon Dioxide Level 27 20-31 mmol/L Anion Gap 10 5-15 Blood Urea Nitrogen 25 H 9-23 mg/dL Creatinine 0.85 0.550-1.02 mg/dL Glomerular Filtration Rate Calc 66 >90 mL/min BUN/Creatinine Ratio 29.4 H 10.0-20.0 Serum Glucose 137 H 74-106 mg/dL Calcium Level 9.8 8.7-10.4 mg/dL Troponin I High Sensitivity 16 </=34 ng/L Time of 1ST Reevaluation: 17:00 Reevaluation 1ST: Unchanged Patient Education/Counseling: Diagnosis, Treatment Family Education/Counseling: Diagnosis, Treatment Departure 1 Departure Time of Disposition: 17:58 (Patient presented with syncope today and should be admitted. Data: 1. I ordered and reviewed the result of at least 3 labs including a CBC, BMP, and troponin. 2. I independently interpreted the following tests: EKG which shows a sinus arrhythmia and a chest x-ray which shows benign chest and a CT head which shows benign brain _.Risk:This patient has a high risk of morbidity due to further diagnostic testing or treatment and may suffer from an acute cardiac, neurologic, or infectious disorder. Rationale: Patient should be admitted to the hospital for further management.) Impression: Primary Impression: Syncope and collapse Additional Impression: Generalized weakness Disposition: ADMITTED INPATIENT Admit to: Tele Condition: Guarded Critical Care Note Critical Care Time?: Yes Critical care comment: Syncope and collapse Authorized and Performed by: Allan Rosa MD Total critical care time: Approximately 39 minutes Due to a high probability of clinically significant, life threatening deterioration, the patient required my highest level of preparedness to intervene emergently and I personally spent this critical care time directly and personally managing the patient. This critical care time included obtaining a history; examining the patient; pulse oximetry; ordering and review of studies; arranging urgent treatment with development of a management plan; evaluation of patient's response to treatment; frequent reassessment; and, discussions with other providers. This critical care time was performed to assess and manage the high probability of imminent, life-threatening deterioration that could result in multi-organ failure. It was exclusive of separately billable procedures and treating other patients and teaching time. Please see my other sections and the rest of the note for further information on patient assessment and treatment. Stability Stability form required: No Heart Score Heart Score: Heart Score Response (Comments) Value History N/A 0 EKG N/A 0 Age N/A 0 Risk Factors N/A 0 Troponin N/A 0 Total 0 I personally scribed for ALLAN ROSA MD ([email or web address]) on 05/25/25 at 16:01. Electronically submitted by Garrison Williamson ([email or web address]). ALLAN ROSA MD May 25, 2025 16:01
--- NOTE | 2025-05-25 16:42 | DVH ---
CLINICAL INFORMATION: 89 years old, Female; syncope. TECHNIQUE: Axial imaging was obtained through the brain without contrast. Coronal and sagittal reformatted images were obtained, reviewed, and stored. Images were reviewed in brain and bone windows. All CT scans at this medical facility are performed using dose modulation techniques as appropriate to a performed exam including the following: Automated exposure control was utilized; adjustment of the MA and/or KV according to patient size; and use of iterative reconstruction technique. CTDIvol = 50.87, 48.73 mGy DLP = 1679.44 mGy-cm COMPARISON: CT BRAIN on DOS: 07/07/23, CT BRAIN on DOS: 11/17/22, CT BRAIN on DOS: 10/25/22 FINDINGS: There is no acute intracranial hemorrhage. No mass effect or midline shift. Scattered areas of hypoattenuation are seen in the periventricular and subcortical white matter, which are nonspecific but most likely sequelae of small vessel ischemic disease. Atrophic changes with dilation of the ventricles and widening of the sulci. Basal cisterns are patent. The calvarium is unremarkable. Mild mucosal thickening of the paranasal sinuses. IMPRESSION: 1. No CT evidence of acute intracranial abnormality. 2. Nonacute findings as described above.
--- NOTE | 2025-05-25 16:43 | DVH ---
CHEST RADIOGRAPH Indication: syncope Technique: Single frontal view of the chest was obtained COMPARISON: XR CHEST 1 VIEW on DOS: 08/22/23, XR CHEST 1 VIEW on DOS: 04/28/23, XR CHEST 2 VIEWS on DOS: 01/03/23, XR CHEST 1 VIEW on DOS: 11/17/22, CHEST TWO VIEWS ROUTINE on DOS: 06/25/22 FINDINGS: Lines and Tubes: None Lungs: Lungs are hyperinflated suggestive of COPD. Right lower lobe airspace disease. Pleura: No effusion. No pneumothorax. Cardiomediastinal contours: Moderate hiatal hernia. Bones: Unremarkable IMPRESSION: Right lower lobe airspace disease.
[2025-05-25 16:57] LABS: Chloride 103 mmol/L (98-107); Hematocrit 35.1 % (36.0-46.0); Hemoglobin 11.5 g/dL (12.2-16.2); Mean Corpuscular Hemoglobin 29.6 pg (28.0-32.0); Mean Corpuscular Volume 90.6 fL (80.0-100.0); Nucleated Red Blood Cells % 0.1 %; Potassium 3.8 mmol/L (3.5-5.1); Sodium 140 mmol/L (136-145)
[2025-05-25 16:58] LABS: Anion Gap 10 (5-15); Calcium 9.8 mg/dL (8.7-10.4); Carbon Dioxide 27 mmol/L (20-31)
[2025-05-25 17:03] LABS: BUN/Creatinine Ratio 29.4 (10.0-20.0)
[2025-05-25 17:09] LABS: Blood Urea Nitrogen 25 mg/dL (9-23); Glucose 137 mg/dL (74-106)
--- NOTE | 2025-05-25 21:28 | DVHHPRES ---
History of Present Illness Resident Creating Document: DOROTA BRUCE RESIDENT History of Present Illness This is a 89-year-old female with past medical history of hypothyroidism, asthma, GERD, hyperlipidemia, recurrent fall brought by EMS accompanied with daughter( Monica Beyer) complaint of recent fall face today morning day of admission towards carpet. But denies any hitting her head. Patient history of brain bleed two and half year ago and admitted to [facility] and transferred to [facility] for higher level of care, discharge patient with Eliquis. After follow-up with primary care, discontinue Eliquis due to risks of ICH secondary to repeated h/o fall. Patient currently alert and denies any fever, chest pain, headache, abdominal pain, dysuria or any focal weakness. Use walker with wheel chair for ambulation. Patient having cough with occasional productive yellow sputum but denies SOB. Patient discharged on June 2024 due to pneumonia. Past medical history: As above For surgical: Hysterectomy 1970 Personal history: Ex-smoker, denies any EtOH or illicit drug use Family history: Mother uterine cancer, pancreatic Allergy: Penicillin PCP: Kiara Marc. Home medication: levothyroxine, Mometasone-formeterol inhaler, montelukast, omeprazole, simvastatin, Advair Diskus, iron. Review of Systems Constitutional: Yes: Malaise, Other (Lean and thin appearance); No: Fever, Chills, Sweats, Weakness ENT: No: Ear pain, Ear discharge, Nose pain, Nose discharge, Nose congestion, Mouth pain, Mouth swelling, Throat pain, Throat swelling, Other Respiratory: Cough; No: Dry, Shortness of breath, SOB with excertion, Wheezing, Hemoptysis, Pleuritic Pain, Sputum, Wheezing, Other Cardiovascular: No: Chest Pain, Palpitations, Orthopnea, Paroxysmal Noc. Dyspnea, Edema, Lt Headedness, Other Gastrointestinal: No: Nausea, Vomiting, Abdominal Pain, Diarrhea, Constipation, Melena, Hematochezia, Other Genitourinary: No Dysuria, No Frequency, No Incontinence, No Hematuria, No Retention, No Other Musculoskeletal: No: other, neck pain, shoulder pain, arm pain, back pain, hand pain, leg pain, foot pain Skin: No: Rash, Lesions, Jaundice, Bruising, Other Neurological: Other (Recurrent fall); No: Weakness, Numbness, Incoordination, Change in speech, Confusion, Seizures Allergies: Coded Allergies: Penicillins (Verified Allergy, Unknown, 08/29/16) Exam Vital Signs Vital Signs Date Time Temp Pulse Resp B/P (MAP) Pulse Ox O2 Delivery O2 Flow Rate FiO2 05/25/25 20:02 97.7 58 18 158/91 (113) 100 97.7 05/25/25 15:58 Room Air* 0 21 General Appearance: Alert, Oriented X3, Cooperative, No acute distress, mild distress HEENT: Atraumatic, PERRLA, EOMI Respiratory: Normal air movement, Other (Right lower lung field crackles on auscultation.) Cardiovascular: Regular rate, Normal S1, Normal S2, No murmurs Abdominal: Normal bowel sounds, Soft, No tenderness Extremities: No clubbing, No cyanosis, No edema, Normal pulses, Other (Bilateral lower extremity edema) Skin: No rashes, No breakdown Neuro: Normal speech, Strength at 5/5 X4 ext, Normal tone, Other (Gait instability) Labs/Xrays Labs Test 05/25/25 19:53 05/25/25 16:40 Range/Units Troponin I High Sensitivity 14 </=34 ng/L White Blood Count 8.8 4.4-10.8 10^3/uL Red Blood Count 3.87 L 4.0-5.20 10^6/uL Hemoglobin 11.5 L 12.2-16.2 g/dL Hematocrit 35.1 L 36.0-46.0 % Mean Corpuscular Volume 90.6 80.0-100.0 fL Mean Corpuscular Hemoglobin 29.6 28.0-32.0 pg Mean Corpuscular Hemoglobin Concent 32.7 32.0-36.0 g/dL Red Cell Distribution Width 15.3 H 11.8-14.3 % Platelet Count 207 140-450 10^3/uL Mean Platelet Volume 7.2 6.9-10.8 fL Neutrophils (%) (Auto) 75.7 37.0-80.0 % Lymphocytes (%) (Auto) 14.3 10.0-50.0 % Monocytes (%) (Auto) 9.2 0.0-12.0 % Eosinophils (%) (Auto) 0.5 0.0-7.0 % Basophils (%) (Auto) 0.3 0.0-2.0 % Neutrophils # (Auto) 6.6 1.6-8.6 10 ^3/uL Lymphocytes # (Auto) 1.3 0.4-5.4 10 ^3/uL Monocytes # (Auto) 0.8 0-1.3 10 ^3/uL Eosinophils # (Auto) 0 0-0.8 10 ^3/uL Basophils # (Auto) 0 0-0.2 10 ^3/uL Nucleated Red Blood Cells 0.1 % Sodium Level 140 136-145 mmol/L Potassium Level 3.8 3.5-5.1 mmol/L Chloride Level 103 98-107 mmol/L Carbon Dioxide Level 27 20-31 mmol/L Anion Gap 10 5-15 Blood Urea Nitrogen 25 H 9-23 mg/dL Creatinine 0.85 0.550-1.02 mg/dL Glomerular Filtration Rate Calc 66 >90 mL/min BUN/Creatinine Ratio 29.4 H 10.0-20.0 Serum Glucose 137 H 74-106 mg/dL Calcium Level 9.8 8.7-10.4 mg/dL SEPSIS Sepsis Screen Date sepsis recognized/suspect: May 25, 2025 Time Sepsis recognized/suspect: 1551 Recent Procedure: No On Antibiotic Therapy: No Respiratory Rate >20: No Heart Rate >90: No Temp<36 C (96.8 F) or >38.3 C: No SBP <90 or MAP <65 mmHG: No New Acute Mental Status Change: No Is the patient on CPAP, BIPAP,: No Physician Orders Urinalysis (05/25/25 15:46) Chest Portable (05/25/25 15:46) Electrocardigram (05/25/25 15:46) Head Without Contrast (05/25/25 15:46) Electrocardigram (05/25/25 16:46) Electrocardigram (05/25/25 18:46) Admit (05/25/25 21:21) Code Status (05/25/25 21:21) 0.9% Ns 1000 Ml (05/25/25 21:30) Cardiac Diet-2gna,Lofat,Lochol (05/26/25 Breakfast) Enoxaparin Sodium (Lovenox) (05/26/25 10:00) Acetaminophen Tablet (Tylenol Tablet) (05/25/25 21:30) Notify Md Of Changes From Base (05/25/25 21:21) Levothyroxine Tablet (Synthroid Tablet) (05/26/25 06:00) Albuterol Medneb (Ventolin Medneb) (05/25/25 21:30) Ipratropium Medneb (Atrovent Medneb) (05/25/25 21:30) Vital Signs Date Time Temp Pulse Resp B/P (MAP) Pulse Ox O2 Delivery O2 Flow Rate FiO2 05/25/25 20:02 97.7 58 18 158/91 (113) 100 97.7 05/25/25 15:58 74 18 97 Room Air* 0 21 05/25/25 15:38 98.8 74 18 130/87 (101) 97 98.8 05/25/25 14:08 97.9 81 16 99/56 94 97.9 Laboratory Tests Test 05/25/25 16:40 White Blood Count 8.8 10^3/uL (4.4-10.8) Assessment/Plan Assessment/Plan Mechanical injury due to fall EKG: HR 82, QTc 471,A-fib in rate controlled. Troponin: 16> 16, repeat troponin CT head without contrast: No acute intracranial abnormality UA UDS CPK Echo on 01/21/2022: EF 60%, trace TR and MR. Fall precaution. Physical therapy. Pneumonia likely Gram-positive Gram-negative organism Asthma without exacerbation CXR: Right lower lung pneumonia. Breathing treatment Empiric antibiotic Monitor WBC Atrial fibrillation with rate control EKG: HR 82, QTc 471,A-fib in rate controlled. Avoid anticoagulation due to history of recurrent fall Anemia of chronic disease Hemoglobin 11.5, HCT 35.1, MCV 90.6, RDW 15.3 No active signs of bleeding Hypothyroidism TSH, free T4 Levothyroxine Diet: Regular GI prophylaxis: Pantoprazole DVT prophylaxis: Lovenox More than 29 minute spent with patient FRANSISCA(daughter-Grace) . Goals of care discussion. DNR-code status. Discussed with Dr. Hobson Plan discussed with: Patient, Daughter (Coty), Other (Nurse) My Orders Orders - DOROTA BRUCE RESIDENT Procedure Category Date Status Time Admit ADMIT 05/25/25 Verified 21:21 Code Status CODE 05/25/25 Verified 21:21 0.9% Ns 1000 Ml PHA 05/25/25 Verified 21:30 Cardiac DIET 05/26/25 Verified Diet-2gna,Lofat,Lochol Breakfast Enoxaparin Sodium PHA 05/26/25 Verified (Lovenox) 10:00 Acetaminophen Tablet PHA 05/25/25 Verified (Tylenol Tablet) 21:30 Notify Md Of Changes PRABHU 05/25/25 Verified From Base 21:21 Levothyroxine Tablet PHA 05/26/25 Verified (Synthroid Tablet) 06:00 Albuterol Medneb PHA 05/25/25 Verified (Ventolin Medneb) 21:30 Ipratropium Medneb PHA 05/25/25 Verified (Atrovent Medneb) 21:30 Visit Coding STANDARD RES Billing Provider: CIRO BACA MD Date of Service if different f: May 25, 2025 Common Visit Codes: [id number] INP/OBS CARE (HIGH) Secondary Visit Codes: [id number] CARE PLAN 30 MINUTES DOROTA BRUCE RESIDENT May 25, 2025 21:28
[2025-05-25] MEDS ORDERED: IPRATROPIUM BROM 0.5 MG/2.5ML INH SOL NEB PRN (21:30)
[2025-05-25] MEDS: SODIUM CHLORIDE 0.9% 1,000 ML IV SCH (21:30)
[2025-05-25] MEDS ORDERED: ALBUTEROL SULF 2.5 MG/0.5ML(0.5%) NEB SOLN NEB PRN (21:30)
[2025-05-25 22:28] VITALS: BP 158/91; PULSE 58; RESP 18; TEMP 97.7; O2SAT 97
[2025-05-25 23:13] LABS: Hematocrit 35.5 % (36.0-46.0); Hemoglobin 11.9 g/dL (12.2-16.2); Mean Corpuscular Hemoglobin 29.9 pg (28.0-32.0); Mean Corpuscular Volume 89.7 fL (80.0-100.0); Nucleated Red Blood Cells % 0.1 %
[2025-05-25 23:48] LABS: COVID19 ANTIGEN SOFIA FIA NEGATIVE (NEGATIVE)
[2025-05-26] VITALS (10 sets, daily range): BP systolic 111–157; BP diastolic 65–82; PULSE 54–79; RESP 15–21; TEMP 97.7–98.2; O2SAT 94–98
[2025-05-26] MEDS: AZITHROMYCIN 250 MG TAB PO ONE (06:26)
[2025-05-26] MEDS: LEVOTHYROXINE SODIUM 88 MCG TAB PO SCH (06:26)
[2025-05-26 06:54] LABS: Albumin 3.4 g/dL (3.2-4.8); Alkaline Phosphatase 88 U/L (46-116); Anion Gap 7 (5-15); BUN/Creatinine Ratio 32.0 (10.0-20.0); Calcium 9.8 mg/dL (8.7-10.4); Carbon Dioxide 28 mmol/L (20-31); Chloride 106 mmol/L (98-107); Glucose 84 mg/dL (74-106); Potassium 4.2 mmol/L (3.5-5.1); Sodium 141 mmol/L (136-145)
[2025-05-26 06:55] LABS: Bilirubin, Total 0.8 mg/dL (0.2-1.0)
--- NOTE | 2025-05-26 06:58 | ECG ---
[facility] Test Date: 2025-05-25 Test Time: 22:01:44 Pat Name: JAYLIN RASHID Department: ED Room: 0251 B Gender: F Progressive Care Manager: : 1935 Requested By: ALLAN JACKSON Order Number: [id number] Reading MD: Bobby Villagomez Measurements Intervals [place] Rate: 82 P: 0 WI: 0 QRS: 82 QRSD: 90 T: 47 QT: 403 QTc: 471 Interpretive Statements Sinus arrhythmia Borderline right axis deviation Electronically Signed On 05-29-2025 19:16:48 PST by Bobby Villagomez Please click the below link to view image of tracing.
[2025-05-26 07:10] LABS: Alanine Aminotransferase < 9 U/L (7-40); Blood Urea Nitrogen 24 mg/dL (9-23); Creatine Kinase IFCC < 15 U/L (34-145); Total Protein 5.3 g/dL (5.7-8.2)
--- NOTE | 2025-05-26 07:49 | ECG ---
[facility] Test Date: 2025-05-26 Test Time: 07:24:26 Pat Name: JAYLIN RASHID Department: Respiratoy Room: 0251 B Gender: F [place] Line Attendant: MANDI : 1935 Requested By: LUCRECIA ANAND Order Number: [id number] Reading MD: Bobby Villagomez Measurements Intervals [place] Rate: 61 P: 56 [place]: 155 QRS: 18 QRSD: 88 T: 49 QT: 423 QTc: 426 Interpretive Statements Sinus rhythm Atrial premature complexes Low voltage, extremity leads Baseline wander in lead(s) II,III,aVF Electronically Signed On 05-29-2025 18:25:57 PST by Bobby Villagomez Please click the below link to view image of tracing.
[2025-05-26] MEDS: ENOXAPARIN SOD 30 MG/0.3 ML SYRINGE SC SCH (11:38)
--- NOTE | 2025-05-26 13:39 | DVHPN2 ---
Reviewed: Care Plan, H&P, Labs, Medications, Previous Orders, Radiology Changes from previous H/P or p: No Changes ENT: No Ear pain, No Ear discharge, No Nose pain, No Nose discharge, No Nose congestion, No Mouth pain, No Mouth swelling, No Throat pain, No Throat swelling, No Other Cardiovascular: No Chest Pain, No Palpitations, No Orthopnea, No Paroxysmal Noc. Dyspnea, No Edema, No Lt Headedness, No Other Respiratory: Cough; No Dry, No Shortness of breath, No SOB with excertion, No Wheezing, No Hemoptysis, No Pleuritic Pain, No Sputum, No Other Gastrointestinal: No Nausea, No Vomiting, No Abdominal Pain, No Diarrhea, No Constipation, No Melena, No Hematochezia, No Other Genitourinary: No Dysuria, No Frequency, No Incontinence, No Hematuria, No Retention, No Other Musculoskeletal: No other, No neck pain, No shoulder pain, No arm pain, No back pain, No hand pain, No leg pain, No foot pain Skin: No Rash, No Lesions, No Jaundice, No Bruising, No Other Objective Vitals Vital Signs Date Time Temp Pulse Resp B/P (MAP) Pulse Ox O2 Delivery O2 Flow Rate FiO2 05/26/25 08:46 97.7 64 15 120/72 (88) 97 97.7 05/26/25 08:00 Room Air* 0 21 Intake/Output Intake and Output 05/26/25 07:00 Intake Total 200 ml Output Total 0 ml Balance 200 ml Intake Oral 200 ml Output Urine Total 0 ml Medications Current Medications Medications Dose Ordered Sig/Joelle Route Start Time Stop Time Status Last Admin Dose Admin Sodium Chloride 1,000 ml @ 60 mls/hr [id number] IV 05/25/25 21:30 Enoxaparin Sodium 30 mg DAILY SC 05/26/25 10:00 05/26/25 11:38 30 MG Acetaminophen 650 mg Q6HP PRN PO 05/25/25 21:30 Levothyroxine Sodium 88 mcg QAM@0600 PO 05/26/25 06:00 05/26/25 06:26 88 MCG Albuterol 2.5 mg Q6HPRN PRN NEB 05/25/25 21:30 Ipratropium [place] 0.5 mg Q6HPRN PRN NEB 05/25/25 21:30 Ceftriaxone Sodium 50 ml @ 100 mls/hr DAILY@09 IV 05/26/25 09:00 05/26/25 11:43 100 MLS/HR Azithromycin 250 mg DAILY PO 05/27/25 10:00 Laboratory Results Laboratory Tests 05/25/25 22:51 05/26/25 06:16 Chemistry Test 05/25/25 16:40 05/26/25 06:16 Calcium Level 9.8 mg/dL (8.7-10.4) 9.8 mg/dL (8.7-10.4) Albumin 3.4 g/dL (3.2-4.8) Total Protein 5.3 g/dL (5.7-8.2) L LFT Test 05/26/25 06:16 Alanine Aminotransferase (ALT) < 9 U/L (7-40) Alkaline Phosphatase 88 U/L (46-116) Aspartate Amino Transferase (AST) 12 U/L (13-40) L Total Bilirubin 0.8 mg/dL (0.2-1.0) HgA1c, TSH Test 05/25/25 16:40 Hemoglobin A1c 4.5 % A1C (<5.7) Thyroid Stimulating Hormone (TSH) 4.50 uIU/mL (0.55-4.78) Labs and/or images reviewed: Labs reviewed by me, Image(s) reviewed by me Assessment/Plan Assessment/Plan Mechanical fall: No injuries, CT head negative Acute community-acquired right lower lobe pneumonia: Rocephin azithromycin History of intracranial hemorrhage treated at [place] 2-1/2 years ago Hypercholesterolemia GERD Hypothyroidism History of asthma Time spent 50 minutes Advanced care planning time 20 minutes Patient is full code Plan discussed with: Patient Date of Service: May 26, 2025 Billing Provider: JOSE CLEVELAND MD Common Visit Codes: [id number] INP/OBS CARE(HIGH) JOSE CLEVELAND MD May 26, 2025 13:39
[2025-05-27] VITALS (8 sets, daily range): BP systolic 112–146; BP diastolic 65–90; PULSE 50–68; RESP 15–18; TEMP 98–98.4; O2SAT 94–97
--- NOTE | 2025-05-27 10:29 | DVHPN2 ---
Reviewed: Care Plan, H&P, Labs, Medications, Previous Orders, Radiology Changes from previous H/P or p: No Changes ENT: No Ear pain, No Ear discharge, No Nose pain, No Nose discharge, No Nose congestion, No Mouth pain, No Mouth swelling, No Throat pain, No Throat swelling, No Other Cardiovascular: No Chest Pain, No Palpitations, No Orthopnea, No Paroxysmal Noc. Dyspnea, No Edema, No Lt Headedness, No Other Respiratory: Cough; No Dry, No Shortness of breath, No SOB with excertion, No Wheezing, No Hemoptysis, No Pleuritic Pain, No Sputum, No Other Gastrointestinal: No Nausea, No Vomiting, No Abdominal Pain, No Diarrhea, No Constipation, No Melena, No Hematochezia, No Other Genitourinary: No Dysuria, No Frequency, No Incontinence, No Hematuria, No Retention, No Other Musculoskeletal: No other, No neck pain, No shoulder pain, No arm pain, No back pain, No hand pain, No leg pain, No foot pain Skin: No Rash, No Lesions, No Jaundice, No Bruising, No Other Objective Vitals Vital Signs Date Time Temp Pulse Resp B/P (MAP) Pulse Ox O2 Delivery O2 Flow Rate FiO2 05/27/25 09:04 98.0 68 17 112/90 (97) 94 98.0 05/26/25 20:00 Room Air* 0 21 Intake/Output Intake and Output 05/27/25 07:00 Intake Total 1100 ml Balance 1100 ml Intake Oral 450 ml IV Total 50 ml Tube Feeding 600 ml # Voids 3 # Bowel Movements 1 Medications Current Medications Medications Dose Ordered Sig/Joelle Route Start Time Stop Time Status Last Admin Dose Admin Sodium Chloride 1,000 ml @ 60 mls/hr [id number] IV 05/25/25 21:30 05/26/25 22:50 60 MLS/HR Enoxaparin Sodium 30 mg DAILY SC 05/26/25 10:00 05/26/25 11:38 30 MG Acetaminophen 650 mg Q6HP PRN PO 05/25/25 21:30 Levothyroxine Sodium 88 mcg QAM@0600 PO 05/26/25 06:00 05/27/25 06:05 88 MCG Albuterol 2.5 mg Q6HPRN PRN NEB 05/25/25 21:30 Ipratropium [place] 0.5 mg Q6HPRN PRN NEB 05/25/25 21:30 Ceftriaxone Sodium 50 ml @ 100 mls/hr DAILY@09 IV 05/26/25 09:00 05/26/25 11:43 100 MLS/HR Azithromycin 250 mg DAILY PO 05/27/25 10:00 Laboratory Results Laboratory Tests 05/25/25 22:51 05/26/25 06:16 Microbiology Microbiology Date/Time Source Procedure Growth Status 05/25/25 22:45 Nose MRSA Screen - Final Complete Labs and/or images reviewed: Labs reviewed by me, Image(s) reviewed by me Assessment/Plan Assessment/Plan Mechanical fall: No injuries, CT head negative Mild Bruise forehead Acute community-acquired right lower lobe pneumonia: Rocephin azithromycin History of intracranial hemorrhage treated at [place] 2-1/2 years ago Hypercholesterolemia GERD Hypothyroidism History of asthma Time spent 50 minutes Advanced care planning time 20 minutes Patient is full code SANDRA Martins at bedside Plan discussed with: Patient My Orders Orders - JOSE CLEVELAND MD Procedure Category Date Status Time Cleanse Wound With PRABHU 05/26/25 In Process Wound Clean 10:54 Date of Service: May 27, 2025 Billing Provider: JOSE CLEVELAND MD Common Visit Codes: [id number] INP/OBS CARE(HIGH) JOSE CLEVELAND MD May 27, 2025 10:29
[2025-05-27] MEDS: AZITHROMYCIN 250 MG TAB PO SCH (12:55)
[2025-05-28] VITALS (8 sets, daily range): BP systolic 113–152; BP diastolic 60–76; PULSE 55–74; RESP 15–18; TEMP 97.5–98.4; O2SAT 93–97
[2025-05-28] MEDS: ACETAMINOPHEN 325 MG TAB PO PRN (09:25)
[2025-05-28] MEDS ORDERED: HYDR-4902 PO (11:14)
[2025-05-28] MEDS ORDERED: AZIT500T66 PO (11:14)
--- NOTE | 2025-05-28 11:17 | DVHPN2 ---
Reviewed: Care Plan, H&P, Labs, Medications, Previous Orders, Radiology Changes from previous H/P or p: No Changes ENT: No Ear pain, No Ear discharge, No Nose pain, No Nose discharge, No Nose congestion, No Mouth pain, No Mouth swelling, No Throat pain, No Throat swelling, No Other Cardiovascular: No Chest Pain, No Palpitations, No Orthopnea, No Paroxysmal Noc. Dyspnea, No Edema, No Lt Headedness, No Other Respiratory: Cough; No Dry, No Shortness of breath, No SOB with excertion, No Wheezing, No Hemoptysis, No Pleuritic Pain, No Sputum, No Other Gastrointestinal: No Nausea, No Vomiting, No Abdominal Pain, No Diarrhea, No Constipation, No Melena, No Hematochezia, No Other Genitourinary: No Dysuria, No Frequency, No Incontinence, No Hematuria, No Retention, No Other Musculoskeletal: No other, No neck pain, No shoulder pain, No arm pain, No back pain, No hand pain, No leg pain, No foot pain Skin: No Rash, No Lesions, No Jaundice, No Bruising, No Other Objective Vitals Vital Signs Date Time Temp Pulse Resp B/P (MAP) Pulse Ox O2 Delivery O2 Flow Rate FiO2 05/28/25 09:00 97.5 72 16 152/76 (101) 93 97.5 05/27/25 20:00 Room Air* 0 21 Intake/Output Intake and Output 05/28/25 07:00 Intake Total 1200 ml Balance 1200 ml Intake Oral 1150 ml IV Total 50 ml # Voids 5 # Bowel Movements 4 Medications Current Medications Medications Dose Ordered Sig/Joelle Route Start Time Stop Time Status Last Admin Dose Admin Sodium Chloride 1,000 ml @ 60 mls/hr [id number] IV 05/25/25 21:30 05/28/25 09:53 60 MLS/HR Enoxaparin Sodium 30 mg DAILY SC 05/26/25 10:00 05/28/25 09:54 30 MG Acetaminophen 650 mg Q6HP PRN PO 05/25/25 21:30 05/28/25 09:25 650 MG Levothyroxine Sodium 88 mcg QAM@0600 PO 05/26/25 06:00 05/28/25 05:37 88 MCG Albuterol 2.5 mg Q6HPRN PRN NEB 05/25/25 21:30 Ipratropium [place] 0.5 mg Q6HPRN PRN NEB 05/25/25 21:30 Ceftriaxone Sodium 50 ml @ 100 mls/hr DAILY@09 IV 05/26/25 09:00 05/28/25 09:52 100 MLS/HR Azithromycin 250 mg DAILY PO 05/27/25 10:00 05/27/25 12:55 250 MG Laboratory Results Laboratory Tests 05/25/25 22:51 05/26/25 06:16 Microbiology Microbiology Date/Time Source Procedure Growth Status 05/25/25 22:45 Nose MRSA Screen - Final Complete Labs and/or images reviewed: Labs reviewed by me, Image(s) reviewed by me Assessment/Plan Assessment/Plan Mechanical fall: No injuries, CT head negative Mild Bruise forehead Acute community-acquired right lower lobe pneumonia: Rocephin azithromycin History of intracranial hemorrhage treated at [place] 2-1/2 years ago Hypercholesterolemia GERD Hypothyroidism History of asthma Patient feels better and wants to go home Plan discussed with: Patient Date of Service: May 28, 2025 Billing Provider: JOSE CLEVELAND MD Common Visit Codes: [id number] INP/OBS CARE(HIGH) JOSE CLEVELAND MD May 28, 2025 11:16
--- NOTE | 2025-05-29 08:05 | DVHDS2 ---
Discharge Summary Date of Admission May 25, 2025 at 21:21 Date of Discharge: May 28, 2025 Admitting Diagnosis Mechanical fall Wounds: Mild bruises forehead Labs/Diagnostic Data: Laboratory Results Test 05/26/25 06:16 05/25/25 22:51 05/25/25 22:45 05/25/25 19:53 Sodium Level 141 mmol/L (136-145) Potassium Level 4.2 mmol/L (3.5-5.1) Chloride Level 106 mmol/L (98-107) Carbon Dioxide Level 28 mmol/L (20-31) Anion Gap 7 (5-15) Blood Urea Nitrogen 24 mg/dL (9-23) Creatinine 0.75 mg/dL (0.550-1.02) Glomerular Filtration Rate Calc 77 mL/min (>90) BUN/Creatinine Ratio 32.0 (10.0-20.0) Serum Glucose 84 mg/dL (74-106) Calcium Level 9.8 mg/dL (8.7-10.4) Total Bilirubin 0.8 mg/dL (0.2-1.0) Aspartate Amino Transferase (AST) 12 U/L (13-40) Alanine Aminotransferase (ALT) < 9 U/L (7-40) Alkaline Phosphatase 88 U/L (46-116) Creatine Kinase < 15 U/L (34-145) Total Protein 5.3 g/dL (5.7-8.2) Albumin 3.4 g/dL (3.2-4.8) White Blood Count 10.9 10^3/uL (4.4-10.8) Red Blood Count 3.96 10^6/uL (4.0-5.20) Hemoglobin 11.9 g/dL (12.2-16.2) Hematocrit 35.5 % (36.0-46.0) Mean Corpuscular Volume 89.7 fL (80.0-100.0) Mean Corpuscular Hemoglobin 29.9 pg (28.0-32.0) Mean Corpuscular Hemoglobin Concent 33.4 g/dL (32.0-36.0) Red Cell Distribution Width 15.2 % (11.8-14.3) Platelet Count 197 10^3/uL (140-450) Mean Platelet Volume 7.0 fL (6.9-10.8) Neutrophils (%) (Auto) 83.7 % (37.0-80.0) Lymphocytes (%) (Auto) 8.8 % (10.0-50.0) Monocytes (%) (Auto) 7.0 % (0.0-12.0) Eosinophils (%) (Auto) 0.2 % (0.0-7.0) Basophils (%) (Auto) 0.3 % (0.0-2.0) Neutrophils # (Auto) 9.1 10 ^3/uL (1.6-8.6) Lymphocytes # (Auto) 1.0 10 ^3/uL (0.4-5.4) Monocytes # (Auto) 0.8 10 ^3/uL (0-1.3) Eosinophils # (Auto) 0 10 ^3/uL (0-0.8) Basophils # (Auto) 0 10 ^3/uL (0-0.2) Nucleated Red Blood Cells 0.1 % Influenza Type A Antigen Negative (Negative) Influenza Type B Antigen Negative (Negative) SARS-CoV-2 Antigen (Rapid) Negative (NEGATIVE) Troponin I High Sensitivity 14 ng/L (</=34) Test 05/25/25 17:56 05/25/25 16:40 Vitamin D 25-Hydroxy 30.5 ng/mL (30.0-100) Hemoglobin A1c 4.5 % A1C (<5.7) Vitamin B12 Level 395 pg/mL (211-911) Thyroid Stimulating Hormone (TSH) 4.50 uIU/mL (0.55-4.78) Other Laboratory Tests 05/26/25 06:16 05/25/25 22:51 Brief Hx & Hospital Course: 89-year-old female with a history of asthma hypothyroidism GERD had a mechanical fall and reported to the ER and admitted CT head negative mild bruise with the forehead possible community-acquired pneumonia treated with Rocephin and azithromycin. Patient feeling better on room air and wants to go home discharged home on antibiotic azithromycin for pneumonia. At the time of discharge patient on room air and with stable vital signs. Consults/Reason for consult None Operations or Procedures CT head Condition at Discharge: Fair Final Diagnosis/Problems List Mechanical fall: No injuries, CT head negative Mild Bruise forehead Acute community-acquired right lower lobe pneumonia: Rocephin azithromycin History of intracranial hemorrhage treated at [place] 2-1/2 years ago Hypercholesterolemia GERD Hypothyroidism History of asthma Discharge Disposition: Home Discharge Instruct/Medications Diet: Cardiac 2g Na,low cholest Activity: Light activity Follow Up/Referral: Follow up with your primary Dr Medications: Azithromycin [place] Sent to the pharmacy Scheduled Apixaban [place] (Eliquis), 2.5 MG PO BIDWM Azithromycin (Azithromycin), 1 TAB PO DAILY Levofloxacin (Levaquin 750 mg), 750 MG PO DAILY Levothyroxine Sodium (Levothyroxine Sodium), 1 TAB PO DAILYPRN, (Reported) Montelukast Sodium (Montelukast Sodium), 1 TAB PO DAILYPRN, (Reported) Nitrofurantoin (Nitrofurantoin), 100 MG PO BID Nitrofurantoin (Nitrofurantoin), 1 CAP PO BID Omeprazole (Omeprazole Dr), 1 CAP PO DAILYPRN, (Reported) Scheduled PRN Hydrocodone-Acetaminophen (Hydrocodone Bitartrate/AC 5-325 mg), 1 TAB PO QID PRN Miscellaneous Medications Mometasone Furoate-Formoterol (Dulera 50-5 Mcg/Act), (Reported) Simvastatin (Simvastatin), 1 TAB PO, (Reported) 35 (Time taken for discharge summary 35 minutes) Discharge Statement: "Patient was advised to return to the ER or call 911 if any headaches, dizziness, shortness of breath, chest pain, abdominal pain, bleeding, fevers, or worsening of medical condition. Patient was counseled about treatment plan, medications, possible side effects, patientverbalized understanding. All questions were answered to the best of my ability. This discharge took greater then 30 minutes in planning, reviewing documentation, counseling the patient, and discussing with other team members." ASSESSMENT ASSESSMENT Assessment Mechanical fall: No injuries, CT head negative Mild Bruise forehead Acute community-acquired right lower lobe pneumonia: Rocephin azithromycin History of intracranial hemorrhage treated at [place] 2-1/2 years ago Hypercholesterolemia GERD Hypothyroidism History of asthma Date of Service: May 29, 2025 Billing Provider: JOSE CLEVELAND MD Common Visit Codes: [id number] INP/OBS CARE(HIGH) JOSE CLEVELAND MD May 29, 2025 08:05
== END 2025-05-28 17:30 | disposition home or self-care (01) | DRG 604 ==
LOC: ER 14:02 → OVERFLOW 21:21 → EAST 23:54
PROVIDERS: ADMIT Family Medicine; ATTEND Family Medicine
DX: S00.83XA Contusion of other part of head, initial encounter (principal); J18.9 Pneumonia, unspecified organism; Z66 Do not resuscitate; Z79.01 Long term (current) use of anticoagulants; D63.8 Anemia in other chronic diseases classified elsewhere; E03.9 Hypothyroidism, unspecified; J45.909 Unspecified asthma, uncomplicated; I48.91 Unspecified atrial fibrillation; E78.00 Pure hypercholesterolemia, unspecified; K21.9 Gastro-esophageal reflux disease without esophagitis; Z88.0 Allergy status to penicillin; Z79.899 Other long term (current) drug therapy; Z90.710 Acquired absence of both cervix and uterus; W18.39XA Other fall on same level, initial encounter; Y93.89 Activity, other specified; Y92.89 Other specified places as the place of occurrence of the external cause; Y99.8 Other external cause status
CPT/HCPCS: 36415; 70450; 71045; 80048; 80053; 82306; 82550; 82607; 83036; 84443; 84484; 85025; 87081; 87426; 87804; 93005; 97163; 99291; G0378